=== PATIENT | male | born 2000 | race Caucasian/White ===

== ENCOUNTER 2022-09-17 16:08 | Emergency (ER) | payer OTHER ==
[2022-09-17] MEDS ORDERED: Boostrix 0.5 ML (Tdap) VIAL (>/=7 yrs of age) ONE (17:11)
[2022-09-17] MEDS ORDERED: HYDROcodone/Acetaminophen 5/325 mg Tablet ONE (17:37)
[2022-09-17] MEDS ORDERED: Bacitracin 1 PK ONE (19:54)
== END 2022-09-17 19:57 | disposition home or self-care (01) ==
LOC: ERS 16:08 → EDSEX 16:08 → ERS 19:57
DX: S06.9X9A Unspecified intracranial injury with loss of consciousness of unspecified duration, initial encounter (principal); S93.402A Sprain of unspecified ligament of left ankle, initial encounter; S80.212A Abrasion, left knee, initial encounter; S80.211A Abrasion, right knee, initial encounter; V13.0XXA Pedal cycle driver injured in collision with car, pick-up truck or van in nontraffic accident, initial encounter
CPT/HCPCS: 70450; 90471; 90715

== ENCOUNTER 2022-10-06 17:05 | Emergency (ER) | payer OTHER ==
[2022-10-06] MEDS ORDERED: traMADol HCl 50 MG TAB ONE (18:36)
== END 2022-10-06 18:42 | disposition home or self-care (01) ==
LOC: ERS 17:05
DX: M25.572 Pain in left ankle and joints of left foot (principal); V09.9XXA Pedestrian injured in unspecified transport accident, initial encounter